=== PATIENT | male | born 1960 | race Caucasian/White ===

== ENCOUNTER 2019-08-25 17:08 | Emergency (ER) | payer BC, OTHER ==
[~2019-08-25] VITALS: Ht 170.2 cm; Wt 89.9 kg
[2019-08-25 17:10] VITALS: BP 130/79
[2019-08-25 19:01] LABS: BASOPHILS # (AUTO) 0.03 x10^3/uL (0-0.1); BASOPHILS % (AUTO) 0 % (0-1); EOSINOPHILS % (AUTO) 1 % (1-7); LYMPHOCYTES # (AUTO) 1.87 x10^3/uL (1-3.4); LYMPHOCYTES % (AUTO) 14 % (22-44); MD NO; MEAN CORPUSCULAR HEMOGLOBIN 30.7 pg (27.5-34.5); MEAN CORPUSCULAR HGB CONC 34.1 g/dL (33.2-36.2); MONOCYTES # (AUTO) 1.07 x10^3/uL (0.2-0.8); MONOCYTES % (AUTO) 8 % (2-9); NEUTROPHILS # (AUTO) 9.91 x10^3/uL (1.8-6.8); NEUTROPHILS % (AUTO) 76 % (42-75); PLATELET COUNT 286 x10^3/uL (130-400); RED BLOOD COUNT 4.87 x10^6/uL (4.38-5.82); RED CELL DISTRIBUTION WIDTH 12.5 % (9.4-14.8)
[2019-08-25 19:10] LABS: ALBUMIN 3.7 g/dL (3.4-5.0); ANION GAP 8 mmol/L (5-15); CALCIUM 9.1 mg/dL (8.5-10.1); CHLORIDE 106 mmol/L (98-107); CREATININE 1.02 mg/dL (0.7-1.3)
[2019-08-25 19:12] LABS: HCT (SEDRATE) 43.8 % (39.2-51.8)
--- NOTE | 2019-08-25 19:31 | NUR ---
pt called back to room from lobby
[2019-08-25] MEDS ORDERED: INDOMETHACIN 50 MG CAPSULE PO ONE (20:00)
[2019-08-25] MEDS ORDERED: INDOMETHACIN 50 MG CAPSULE ONE (20:01)
--- NOTE | 2019-08-25 20:15 | NUR ---
MEDS ADMIN PER JUN. PT SITTING IN CHAIR.
--- NOTE | 2019-08-25 20:36 | NUR ---
ALL RESULTS ARE BACK AT THIS TIME CHART UP FOR RECHECK.
--- NOTE | 2019-08-25 20:57 | NUR ---
MD AT BEDSIDE TO UPDATE PT ON POC.
--- NOTE | 2019-08-25 21:10 | NUR ---
PT REFUSED WRIST SPLINT, HE HAS ONE AT HOME.
== END 2019-08-25 21:16 | disposition home or self-care (01) ==
LOC: ED 19:46
DX: M10.031 Idiopathic gout, right wrist (principal); M25.512 Pain in left shoulder; Z87.891 Personal history of nicotine dependence
CPT/HCPCS: 36415; 80048; 82040; 84550; 85025; 85651; 99284